=== PATIENT | female | born 1970 | race American Indian/Alaskan Native ===

== ENCOUNTER 2016-12-04 17:08 | Emergency (ER) | payer BC ==
[2016-12-04 17:57] LABS: Basophils % (Auto) 0.5 % (0.0-1.8); Hematocrit 44.2 % (30.3-42.9); Mean Corpuscular HGB Conc 34 % (30-34); Mean Corpuscular Hemoglobin 30 pg (28-32); Mean Corpuscular Volume 89 fl (79-97); Platelet Count 264 K/mm3 (140-440); Red Blood Count 4.98 M/mm3 (3.65-5.03); Red Cell Distribution Width 13.2 % (13.2-15.2)
[2016-12-04 18:12] LABS: Alanine Aminotransferase 20 units/L (7-56); Albumin 4.2 g/dL (3.9-5); Albumin/Globulin Ratio 1.4 %; Alkaline Phosphatase 75 units/L (35-129); BUN/Creatinine Ratio 8.57; Bilirubin,Total 0.4 mg/dL (0.1-1.2); Blood Urea Nitrogen 6 mg/dL (7-17); Calcium 9.3 mg/dL (8.4-10.2); Carbon Dioxide 23 mmol/L (22-30); Glucose 98 mg/dL (65-100); Lipase 26 units/L (13-60); Total Protein 7.2 g/dL (6.3-8.2)
[2016-12-04 18:51] LABS: Anion Gap 17 mmol/L; Chloride 105.3 mmol/L (98-107); Potassium 4.3 mmol/L (3.6-5.0); Sodium 141 mmol/L (137-145)
[2016-12-04 20:52] VITALS: BP 155/79
--- NOTE | 2016-12-04 21:12 | Emergency Department Report ---
HPI - General Chief Complaint: Abdominal Pain Time Seen by Provider: 12/04/16 18:05 - HPI HPI: This is a 46-year-old Afro-Citizen Of [place] female presents to the emergency department , driven in by her , from an urgent care on [place] to rule out appendicitis. Patient has been having right lower quadrant abdominal pain since this morning. It is associated with some nausea without vomiting. The pain does radiate down the right leg. There is no fever, back pain, dysuria, vaginal bleeding or discharge. The patient says that she took a Tylenol at 4 AM and a "pain pill" at 11 AM without any relief. Recent travel or sick contacts at home. She does not have any significant past medical history. She' s had a past surgical history of tubal ligation. 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 ED Past Medical Hx - Past Medical History Previous Medical History?: Yes Additional medical history: Depo shots because mensatrual cycles were painful - Surgical History Past Surgical History?: Yes Additional Surgical History: Tubaligation - Social History Smoking Status: Never Smoker Substance Use Type: Prescribed - Medications Home Medications: Home Medications Medication Instructions Recorded Confirmed Last Taken Type medroxyPROGESTERone ACETATE 12/04/16 Unknown History [Depo-Provera (Contraception)] HYDROcodone/APAP 5-325 [[place] 1 each PO Q6HR PRN #10 tablet 12/05/16 Unknown Rx 5/325] ED Review of Systems ROS: Stated complaint: RLQ PAIN Other details as noted in HPI Comment: All other systems reviewed and negative Constitutional: denies: chills, fever Eyes: denies: eye pain, eye discharge, vision change ENT: denies: ear pain, throat pain Respiratory: denies: cough, shortness of breath, wheezing Cardiovascular: denies: chest pain, palpitations Gastrointestinal: abdominal pain, nausea. denies: vomiting Genitourinary: denies: urgency, dysuria, discharge Musculoskeletal: myalgia. denies: back pain, joint swelling Skin: denies: rash, lesions Neurological: denies: headache, weakness, paresthesias Physical Exam - Physical Exam Vital Signs: Vital Signs 12/04/16 12/04/16 17:18 20:52 Temperature 99 F Pulse Rate 74 89 Respiratory 18 18 Rate Blood Pressure 148/89 Blood Pressure 155/79 [Right] O2 Sat by Pulse 99 100 Oximetry Physical Exam: GENERAL: The patient is well-developed well-nourished. HEENT: Normocephalic. Atraumatic. Extraocular motions are intact. Patient has moist mucous membranes. Pupils equal reactive to light bilaterally. NECK: Supple. Trachea is midline. CHEST/LUNGS: Clear to auscultation. There is no respiratory distress noted. HEART/CARDIOVASCULAR: Regular. There is no tachycardia. There is no gallop rub or murmur. ABDOMEN: Abdomen is soft. Patient has tenderness palpation to the right lower quadrant of the abdomen. No guarding or rebound tenderness. There is no peritoneal signs with heel strike. Patient has normal bowel sounds. There is no abdominal distention. SKIN: Skin is warm and dry. NEURO: The patient is awake, alert, and oriented. The patient is cooperative. The patient has no focal neurologic deficits. The patient has normal speech and gait. MUSCULOSKELETAL: There is no tenderness to palpation of the right lower extremity but the pain worsens with straight leg raise test as well as heel strike. No obvious deformity. There is no evidence of acute injury. ED Course Vital Signs 12/04/16 12/04/16 17:18 20:52 Temperature 99 F Pulse Rate 74 89 Respiratory 18 18 Rate Blood Pressure 148/89 Blood Pressure 155/79 [Right] O2 Sat by Pulse 99 100 Oximetry ED Medical Decision Making - Lab Data Result diagrams: 12/04/16 17:37 12/04/16 17:37 - Radiology Data Radiology results: report reviewed CT of the abdomen and pelvis with IV contrast shows several fluid-filled small bowel loops in the lower abdomen and pelvis. Mild enteritis cannot be excluded. Otherwise large and small bowel loops normal in caliber. Appendix is normal. No bowel obstruction. Transvaginal ultrasound shows no discrete uterine lesions or adnexal masses. Ovaries are grossly unremarkable. - Medical Decision Making 46-year-old female presents with right lower quadrant abdominal pain. She was sent in with concern for appendicitis. Patient's labs are unremarkable. CT shows some signs of possible enteritis with fluid-filled small bowel loops but no signs of bowel structure. Appendix is normal. Patient also had a transvaginal ultrasound just to look into her lower abdominal and/or pelvic discomfort but this was also negative. She was given a dose of pain medication and upon reevaluation she is feeling improved. She was safe for discharge home with some pain medication and urged to follow-up with her primary care doctor. She'll return to the ER if any worsening or symptoms or any acute distress. - Differential Diagnosis appendicitis, , fibroids, UTI, colitis Critical Care Time: No Critical care attestation.: If time is entered above; I have spent that time in minutes in the direct care of this critically ill patient, excluding procedure time. ED Disposition Clinical Impression: Abdominal pain Qualifiers: Abdominal location: right lower quadrant Qualified Code(s): R10.31 - Right lower quadrant pain Hypertension Qualifiers: Hypertension type: essential hypertension Qualified Code(s): I10 - Essential ( primary) hypertension Disposition: DISCHARGED TO HOME OR SELFCARE Is pt being admited?: No Condition: Stable Instructions: Abdominal Pain (ED), Hypertension (ED) Additional Instructions: Please follow-up with your primary care doctor in the next few days. Return to the emergency department with any worsening of your symptoms or any acute distress. You've been prescribed a medication that is sedating. Therefore this medication cannot be mixed with alcohol, or taken prior to driving, working, or being responsible for children. Prescriptions: HYDROcodone/APAP 5-325 [[place] 5/325] 1 each PO Q6HR PRN #10 tablet PRN Reason: Pain Referrals: PRIMARY CARE, [Primary Care Provider] - 3-5 Days Time of Disposition: 01:13
--- NOTE | 2016-12-04 23:17 | Cat Scan Report ---
FINAL REPORT EXAM: CT ABDOMEN PELVIS W CON HISTORY: Abd pain, RLQ COMPARISON: None available. TECHNIQUE: Contiguous axial images were obtained. Administration of IV contrast given per institution protocol. Images submitted for interpretation. FINDINGS: Lung bases are clear. 1 centimeter left hepatic lobe cyst. No calcified gallstones or biliary dilatation. Spleen, pancreas, adrenal glands are grossly unremarkable. No solid renal lesion. No hydronephrosis. Aorta and IVC normal in caliber. Urinary bladder is grossly unremarkable. Uterus is grossly unremarkable. Prior tubal ligation. Trace fluid in the pelvis. This is within physiologic limits. Several fluid-filled small bowel loops in the pelvis. Mild enteritis cannot be excluded. The appendix is normal in caliber. Moderate stool in the colon. Mild degenerative changes of lumbar spine. Bony pelvis is grossly intact. IMPRESSION: Several fluid-filled small bowel loops lower abdomen and pelvis. Mild enteritis cannot be excluded. Otherwise, large and small bowel loops normal in caliber. The appendix is normal in caliber. No bowel obstruction. Trace free fluid in the pelvis within physiologic limits.
[2016-12-04] MEDS ORDERED: NORCO 5/325 PO ONE (23:49)
[2016-12-04] MEDS ORDERED: MORPHINE ONE (23:54)
[2016-12-05] MEDS ORDERED: MORPHINE IV ONE (00:05)
--- NOTE | 2016-12-05 01:12 | Ultrasound Report ---
FINAL REPORT EXAM: US PELVIC COMPLETE HISTORY: pelvic pain COMPARISON: CT abdomen and pelvis from December 04, 2016. TECHNIQUE: Several real-time grayscale and color Doppler images were obtained. Transabdominal and transvaginal exam. Spectral analysis. FINDINGS: The uterus measures 7.7 x 4.9 x 6.3 centimeters. Endometrial stripe measures 6 millimeters. No discrete lesions. Right ovary measures 2.7 x 1.5 x 1.8 centimeters. Left ovary measures 2.4 x 1.5 x 1.4 centimeters. Spectral analysis demonstrates arterial waveforms to the ovaries. No adnexal mass is demonstrated. Tiny echogenic foci within the ovaries are compatible with areas of calcification. No free fluid demonstrated. IMPRESSION: No discrete uterine lesions or adnexal masses. Ovaries are grossly unremarkable.
== END 2016-12-05 01:41 | disposition home or self-care (01) ==
LOC: ED 17:08
DX: R10.31 Right lower quadrant pain (principal); I10 Essential (primary) hypertension; Z98.51 Tubal ligation status
CPT/HCPCS: 36415; 74177; 76830; 76856; 80053; 83690; 85025; 96374; 99284; J2270; Q9967